=== PATIENT | female | born 1985 | race Caucasian/White ===

== ENCOUNTER 2018-02-06 13:46 | Emergency (ER) | payer OTHER ==
[~2018-02-06] VITALS: Ht 172.7 cm; Wt 72.6 kg
[2018-02-06] MEDS ORDERED: CLINDAMYCIN PHOS 600 MG/ 4 ML VIAL IM ONE (14:30)
--- OUTSIDE RECORDS SUMMARY | 2018-02-12 12:40 | XMS REPORT | Clinical Summary ---
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 Disp. Refills Start End Date Status Date tramadol-acetaminophen Take 1 tablet by mouth Active (ULTRACET) 37.5-325 mg every 6 (six) hours as per tablet needed for moderate pain. apixaban (ELIQUIS) 2.5 mg Take 2.5 mg by mouth 2 Active tablet (two) times a day. Active Problems Not on file Social History Tobacco Use Types Packs/Day Years Used Date Never Smoker Alcohol Use Drinks/Week oz/Week Comments No Sex Assigned at Date Recorded Not on file Last Filed Vital Signs Not on file Plan of Treatment Health Maintenance Due Date Last Done Comments CERVICAL CANCER SCREENING 2005 INFLUENZA VACCINE 11/28/2017 Results Not on fileafter 02/05/2017 Insurance Payer Benefit Subscriber ID Type Phone Address Plan / Group [employer] EXCHANGE [facility] xxxxxxxxx Exchange [facility] xxxxxxxxx [facility]
== END 2018-02-06 14:35 | disposition home or self-care (01) ==
LOC: FSED 13:46
DX: L03.113 Cellulitis of right upper limb (principal)
CPT/HCPCS: 99282